=== PATIENT | female | born 1975 | race African-American/Black ===

== ENCOUNTER 2020-03-11 01:36 | Emergency (ER) | payer SELFPAY ==
[~2020-03-11] VITALS: Ht 167.6 cm; Wt 87.0 kg
[2020-03-11 01:38] VITALS: BP 143/102
== END 2020-03-11 02:47 | disposition left against medical advice (07) ==
LOC: ER 01:36
DX: R07.89 Other chest pain (principal); Z53.21 Procedure and treatment not carried out due to patient leaving prior to being seen by health care provider
CPT/HCPCS: 93005